=== PATIENT | female | born 1975 | race Two or more races ===

== ENCOUNTER 2018-02-25 14:57 | Outpatient (CLI) | payer OTHER | END 2018-02-25 15:46 | disposition home or self-care (01) | LOC: SONOGRAMA 14:57 | DX: M06.09 Rheumatoid arthritis without rheumatoid factor, multiple sites (principal) ==

== ENCOUNTER 2021-04-25 11:16 | Outpatient (CLI) | payer OTHER | END 2021-04-25 11:35 | disposition home or self-care (01) | LOC: MRI 11:16 | PROVIDERS: ATTEND Internal Medicine Cardiovascular Disease | DX: M54.5 Low back pain (principal) | CPT/HCPCS: 72148 ==